=== PATIENT | female | born 1945 | race Caucasian/White ===

== ENCOUNTER 2018-07-28 05:53 | Emergency (ER) | payer OTHER, MEDICARE ==
[2018-07-28 06:04] VITALS: BMI 19.2
--- NOTE | 2018-07-28 06:06 | PDOC ---
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 Pain began during late evening, a few hours after eating and worsened over the next several hours. She vomited twice(Partially digested food). When it was most severe , it radiated to her back. No hx of this type of pain. No hx of pancreatic issues. No hx of renal or biliary colic. She did not take anything for the pain and it is somewhat less severe now She had much milder pain in the same area which resolved spontaneously the previous night The patient denies chest pain, shortness of breath, headache and dizziness. Denies fever, chills, nausea, vomit, diarrhea and constipation. Denies dysuria, frequency, urgency and hematuria. Allergies: Morphine Past surgical history:Hysterectomy/appendectomy Social history: No smoking/social ETOH only Past History - Past Medical History Allergies/Adverse Reactions: Allergies Allergy/AdvReac Type Severity Reaction Status Date / Time morphine Allergy Severe Itching Verified 01/30/17 06:27 Home Medications: Ambulatory Orders NK [No Known Home Medication] 01/27/17 Anemia: No Asthma: No Cancer: Yes (RIGHT BREAST X2,) Cardiac Disorders: No CVA: No COPD: No CHF: No Dementia: No Diabetes: No GI Disorders: No Disorders: No HTN: No (LOW BP) Hypercholesterolemia: No Liver Disease: No Seizures: No Thyroid Disease: No - Surgical History Abdominal Surgery: No Appendectomy: Yes (DURING HYSTERECTOMY) Cardiac Surgery: No Cholecystectomy: No Lung Surgery: No Neurologic Surgery: No Orthopedic Surgery: No - Suicide/Smoking/Psychosocial Hx Smoking History: Unknown if ever smoked Have you smoked in the past 12 months: No Information on smoking cessation initiated: No Hx Alcohol Use: Yes (SOCIALLY) Drug/Substance Use Hx: No Substance Use Type: None Hx Substance Use Treatment: No Review of Systems - Review of Systems Comments:: GENERAL/CONSTITUTIONAL: No fever or chills. No weakness. HEAD, EYES, EARS, NOSE AND THROAT: No change in vision. No ear pain or discharge. No sore throat. CARDIOVASCULAR: No chest pain or shortness of breath. RESPIRATORY: No cough, wheezing, or hemoptysis. GASTROINTESTINAL: No diarrhea or constipation. GENITOURINARY: No dysuria, frequency, or change in urination. MUSCULOSKELETAL: No joint or muscle swelling or pain. No neck or back pain. SKIN: No rash NEUROLOGIC: No headache, vertigo, loss of consciousness, or change in strength/ sensation. ENDOCRINE: No increased thirst. No abnormal weight change. HEMATOLOGIC/LYMPHATIC: No anemia, easy bleeding, or history of blood clots. ALLERGIC/IMMUNOLOGIC: No hives or skin allergy. *Physical Exam - Vital Signs Last Vital Signs Temp Pulse Resp BP Pulse Ox 98.0 F 64 16 136/66 100 07/28/18 06:00 07/28/18 06:00 07/28/18 06:00 07/28/18 06:00 07/28/18 06:00 - Physical Exam Comments: GENERAL: Awake, alert, and fully oriented, in no acute distress HEAD: No signs of trauma EYES: PERRLA, EOMI, sclera anicteric, conjunctiva clear ENT: Auricles normal inspection, hearing grossly normal, nares patent, oropharynx clear without exudates. Moist mucosa NECK: Normal ROM, supple, no lymphadenopathy, JVD, or masses LUNGS: Breath sounds equal, clear to auscultation bilaterally. No wheezes, and no crackles HEART: Regular rate and rhythm, normal S1 and S2, no murmurs, rubs or gallops ABDOMEN: Soft, normoactive bowel sounds.Mild tenderness to palpation left periumbilical area; No guarding, no rebound. No masses EXTREMITIES: Normal range of motion, no edema. No clubbing or cyanosis. No cords, erythema, or tenderness NEUROLOGICAL: Cranial nerves II through XII grossly intact. Normal speech, normal gait SKIN: Warm, Dry, normal turgor, no rashes or lesions noted. 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 Mild tenderness to deep palpation Left periumbilical/ flank area Differential dx includes renal colic/ pancreatitis / diverticulitis. CBC/Chemistry profile/amylase/lipase has been sent. UA pending NS IV hydration started and patient given 15mg Toradol IV/ Protonix 40g IV Abdominal/pelvic CT planned 07/28/18 06:54 the patient reports some relief after IV Toradol Case signed out to Dr Shields at end of shift *DC/Admit/Observation/Transfer Diagnosis at time of Disposition: Renal cyst, Hydronephrosis - Discharge Dispostion Disposition: HOME Condition at time of disposition: Stable - Referrals Referrals: David Hayes MD [Staff Physician] - - Patient Instructions Printed Discharge Instructions: Hydronephrosis -- Adult Additional Instructions: The CT noted some cysts on and around your left kidney, which may be causing the pain. It appears, however, that the kidney is functioning well. These cysts may cause pain from time to time, as well as blood in the urine. If you have severe pain, heavy bleeding, lightheadedness, vomiting, or any other concerning symptoms, return to the ER immediately. Otherwise please call urology on Monday to arrange a follow-up. - Post Discharge Activity
[2018-07-28] MEDS ORDERED: PANTOPRAZOLE SODIUM 40 MG VIAL ONE (06:30)
[2018-07-28] MEDS ORDERED: KETOROLAC TROMETHAMINE 30 MG/1 ML VIAL IVPUSH ONE (06:30)
[2018-07-28] MEDS ORDERED: KETOROLAC TROMETHAMINE 15 MG/ML VIAL ONE (06:30)
[2018-07-28] MEDS ORDERED: SODIUM CHLORIDE 1,000 ML IV STA ×2 (06:30→09:29)
[2018-07-28] MEDS ORDERED: PANTOPRAZOLE SODIUM 40 MG VIAL IVPB ONE (06:31)
--- NOTE | 2018-07-28 07:13 | PDOC ---
*Physical Exam - Vital Signs Last Vital Signs Temp Pulse Resp BP Pulse Ox 98.0 F 64 16 136/66 100 07/28/18 06:00 07/28/18 06:00 07/28/18 06:00 07/28/18 06:00 07/28/18 06:00 ED Treatment Course - LABORATORY CBC & Chemistry Diagram: 07/28/18 06:20 07/28/18 06:20 - Medications Given in the ED: ED Medications Discontinued Medications Generic Name Dose Route Start Last Admin Trade Name Darian PRN Reason Stop Dose Admin Ketorolac Tromethamine 15 mg 07/28/18 06:30 07/28/18 06:34 Toradol Injection - IVPUSH 07/28/18 06:31 15 mg ONCE ONE Administration Pantoprazole Sodium 40 mg 07/28/18 06:31 07/28/18 06:34 Protonix Iv IVPB 07/28/18 06:32 40 mg ONCE ONE Administration Medical Decision Making - Medical Decision Making 07/28/18 07:12 Pt received on signout from Dr. Le. Awaiting labs, then will obtain CT a/p to further evaluate. 07/28/18 10:53 CT shows renal cysts and pararenal cyst, poss mild hydro. Pt notes that she has had intermittent darker urine recently, which is likely related to bleeding from the cysts. Recommended OTC painkillers, as she received a small dose of toradol in the ED. F/u with urology. *DC/Admit/Observation/Transfer Diagnosis at time of Disposition: Renal cyst Hydronephrosis Qualifiers: Hydronephrosis type: unspecified Qualified Code(s): N13.30 - Unspecified hydronephrosis - Discharge Dispostion Disposition: HOME Condition at time of disposition: Stable Decision to Admit order: No - Referrals Referrals: Brian Astorga MD [Primary Care Provider] - - Patient Instructions Printed Discharge Instructions: Hydronephrosis -- Adult Additional Instructions: The CT noted some cysts on and around your left kidney, which may be causing the pain. It appears, however, that the kidney is functioning well. These cysts may cause pain from time to time, as well as blood in the urine. If you have severe pain, heavy bleeding, lightheadedness, vomiting, or any other concerning symptoms, return to the ER immediately. Otherwise please call urology on Monday to arrange a follow-up. - Post Discharge Activity
[2018-07-28 08:22] LABS: BASO % 0.1 % (0-2.0); EOS % 0.3 % (0-4.5); HEMATOCRIT 38.5 % (32.4-45.2); HEMOGLOBIN 12.9 GM/dl (10.7-15.3); LYMPH % 9.7 % (8-40); MCHC 33.4 g/dl (32.0-36.0); MEAN CELL VOLUME 89.9 fl (80-96); MEAN PLT VOLUME 7.9 fl (7.5-11.1); MONO % 4.4 % (3.8-10.2); NEUT % 85.5 % (42.8-82.8); PLATELET COUNT 228 K/MM3 (134-434); RBC 4.29 M/mm3 (3.60-5.2); RDW 13.8 % (11.6-15.6); WHITE BLOOD COUNT 7.5 K/mm3 (4.0-10.8)
[2018-07-28 08:38] LABS: ALBUMIN 3.9 g/dl (3.4-5.0); ALK PHOS 64 U/L (45-117); AMYLASE 68 U/L (25-115); ANION GAP 14 MMOL/L (8-16); BILIRUBIN,TOTAL 0.5 mg/dl (0.2-1); BLOOD UREA NITROGEN 30 mg/dl (7-18); CALCIUM 8.7 mg/dl (8.5-10); CHLORIDE 99 mmol/L (98-107); CO2 24 mmol/L (21-32); CREATININE 0.6 mg/dl (0.55-1.3); GLUCOSE,RANDOM 110 mg/dl (74-106); POTASSIUM 4.3 mmol/L (3.5-5.1); SGOT/AST 35 U/L (15-37); SGPT/ALT 37 U/L (13-61); SODIUM 137 mmol/L (136-145); TOT PROT 6.9 g/dl (6.4-8.2)
[2018-07-28 10:02] LABS: EPITHELIAL CELLS FEW /hpf
[2018-07-28 10:52] VITALS: BP 110/68; PULSE 68; TEMP 97.3
== END 2018-07-28 10:57 | disposition home or self-care (01) ==
LOC: FER 05:53
PROC: 3E0337Z Introduction of Electrolytic and Water Balance Substance into Peripheral Vein, Percutaneous Approach (ICD-10-PCS; principal; 2018-07-28)
PROC: 3E033NZ Introduction of Analgesics, Hypnotics, Sedatives into Peripheral Vein, Percutaneous Approach (ICD-10-PCS; 2018-07-28)
PROC: 3E033GC Introduction of Other Therapeutic Substance into Peripheral Vein, Percutaneous Approach (ICD-10-PCS; 2018-07-28)
DX: N13.30 Unspecified hydronephrosis (principal); N28.1 Cyst of kidney, acquired; Z85.3 Personal history of malignant neoplasm of breast
CPT/HCPCS: 36415; 74177-TC; 80053; 81003; 81015; 82150; 82550; 82553; 83690; 84484; 85025; 99282-25; J7030

== ENCOUNTER 2024-02-15 10:03 | Emergency (ER) | payer OTHER, MEDICARE ==
[2024-02-15 10:32] VITALS: BP 135/65; PULSE 91; RESP 18; TEMP 98.5; BMI 18.3
[2024-02-15] MEDS ORDERED: ACETAMINOPHEN 325 MG TABLET (FP) ONE (10:47)
[2024-02-15] MEDS: ACETAMINOPHEN 500 MG TABLET (FP) PO ONE (11:06)
== END 2024-02-15 12:35 | disposition home or self-care (01) ==
LOC: JER 10:03
DX: S00.03XA Contusion of scalp, initial encounter (principal); W01.0XXA Fall on same level from slipping, tripping and stumbling without subsequent striking against object, initial encounter
CPT/HCPCS: 70450-TC; 72125-TC; 93005; 93010; 99284-25